=== PATIENT | male | born 1945 | race Caucasian/White ===

== ENCOUNTER 2018-01-31 08:16 | Day surgery (SDC) | payer OTHER ==
[~2018-01-31] VITALS: Ht 185.4 cm; Wt 122.5 kg
[2018-01-31] VITALS (10 sets, daily range): BP systolic 100–142; BP diastolic 67–81; PULSE 56–66; TEMP 36.5–36.6; O2SAT 92–98; Ht 185.4 cm; Wt 122.5 kg
[~2018-01-31 08:16] MED LIST: CALC500C3; STLS; SYNUNK
[2018-01-31] MEDS ORDERED: LEVO100T PO (08:43)
[2018-01-31] MEDS ORDERED: FURO-85 PO (08:43)
[2018-01-31] MEDS ORDERED: ATOR-22 PO (08:43)
[2018-01-31] MEDS ORDERED: ASPI81TA28 PO (08:43)
--- NOTE | 2018-01-31 10:55 | Discharge Instructions ---
Discharge Instructions Procedure Procedure Date: Jan 31, 2018. Reason for visit: Lumbar Stenosis. Discharge Discharge Date: Jan 31, 2018. Discharge Diagnosis: same Instructions Activity Recommendations: No limitations Return to School/Work: no limitations Recommended Home Diet: Resume Previous Diet Provider Instructions: ACTIVITY RECOMMENDATIONS: * Rest today. * Resume regular activity in one day. MEDICATIONS: * May take Tylenol or Ibuprofen as needed for pain. DIET: * Resume previous diet. SPECIAL CARE INSTRUCTIONS: Call your doctor if: * Temperature above 101 degrees F. * Pain not relieved by pain medicine ordered. * Increased drainage or redness from incision. * Notify your doctor with any questions or concerns. Call your doctor or go to the nearest Emergency Department if you experience: * Increased chest pain or shortness of breath. FOLLOW UP VISIT: Follow-up with Referring Physician as scheduled. Allergies Coded Allergies: No Known Allergies (Unverified , 01/31/18) Elisabeth Barajas Recommendations: Call your doctor if: * Temperature above 101 degrees * Pain not relieved by pain medicine ordered * There is increased drainage or redness from any incision * You have any unanswered questions or concerns. Your Doctors Instructions noted above were prepared by provider Amos Banerjee. Patient Signature Section: Patient Instructions Signature Page Skip Aranda Patient (or Guardian) Signature/Date: I have read and understand the instructions given to me by my caregivers. Caregiver/RN/Doctor Signature/Date: The above-named patient and/or guardian has received patient instructions on this date. + Original Patient Signature Page (only) stays with chart. Please make copy for patient.
[2018-01-31] MEDS ORDERED: ACETAMINOPHEN 500 MG TAB PO PRN (11:00)
--- NOTE | 2018-01-31 11:17 | DIAGNOSTIC IMAGING REPORT ---
FLUOROSCOPICALLY GUIDED LUMBAR MYELOGRAM CLINICAL HISTORY: Back Pain FLUOROSCOPY TIME: 0.4 minutes. 3 fluoroscopic spot images. PROCEDURE: The procedure, risks and benefits were discussed with the patient including the risk of spinal headache, bleeding and infection. The patient agreed to the procedure and informed written consent was obtained. The procedure was performed by Dr. Banerjee following a timeout. The left L5-S1 interlaminar space was targeted. Skin overlying the space was prepped and draped in the usual sterile fashion and local anesthesia was achieved with 1% lidocaine. Under intermittent fluoroscopic guidance, a 20-gauge x 4.75 in. Sprotte needle was inserted into the thecal sac. A total of 12cc of Isovue-M 200 was injected into the thecal sac under fluoroscopic. The patient tolerated the procedure well. There were no immediate complications. IMPRESSION: Successful fluoroscopic guided lumbar myelogram. No immediate complications. The patient was transported to the CT suite. Electronically signed by: Amos Banerjee M.D. 01/31/2018 11:16 AM Dictated Date/Time: 01/31/2018 11:14 AM
--- NOTE | 2018-01-31 11:57 | DIAGNOSTIC IMAGING REPORT ---
LUMBAR SPINE CT MYELOGRAM HISTORY: Back Pain MYELOGRAM TECHNIQUE: Multiaxial CT images of the lumbar spine were performed and reformatted in the sagittal and coronal plane following the intrathecal injection of contrast. COMPARISON STUDY: Lumbar spine radiograph 01/08/2018. FINDINGS: For the person of the report there are be 5 lumbar type vertebral bodies with the L5-S1 disc space located on axial image [id number] of [id number]. No fracture within the lumbar spine. There is 3 mm of retrolisthesis of L1 on L2 and L2 on L3. Severe disc space narrowing at L1-L2. Moderate to space narrowing at L2-L3. Mild disc space. L3-L4, L4-L5, and L5-S1. Mild levoscoliosis of the lumbar spine with the apex at the L2-L3 level. Endplate osteophytes seen throughout the lumbar spine. Mild disc space narrowing within the lower thoracic spine. The conus terminates at the L1-L2 disc space level. Moderate to severe facet osteoarthritis seen throughout the lumbar spine most pronounced at the L4-L5 and L5-S1 levels. Paraspinal soft tissues are unremarkable. T10-11: Focal left paracentral disc protrusion which abuts and slightly deforms the left anterior cord. T11-T12: No significant central canal or neural foraminal narrowing. L1-L2: Broad-based posterior disc bulge resulting in mild central canal and moderate bilateral neural foraminal narrowing. L2-L3: Broad-based posterior disc bulge with ligamentum and facet hypertrophy resulting in mild to moderate central canal and moderate to severe bilateral neural foraminal narrowing. L3-L4: Broad-based posterior disc bulge with ligamentum and facet hypertrophy resulting in severe central canal and moderate right neural foraminal narrowing. There is mild left neural foraminal narrowing. L4-L5: Broad-based posterior disc bulge with ligamentum and facet hypertrophy resulting in moderate to severe central canal and moderate to severe right-sided neural foraminal narrowing. There is also mild left-sided neural foraminal narrowing. L5-S1: No significant central canal narrowing. Moderate to severe left-sided neural foraminal narrowing. IMPRESSION: 1. Multilevel lumbar spondylosis as described above most pronounced at the L3-L4 and L4-L5 levels. 2. Multilevel bilateral neural foraminal narrowing due to the disc bulges and facet osteoarthritis. 3. Mild levoscoliosis. 4. Grade I retrolisthesis of L1 on L2 and L2 on L3. 5. No fractures identified within the lumbar spine. Electronically signed by: Amos Banerjee M.D. 01/31/2018 11:55 AM Dictated Date/Time: 01/31/2018 11:43 AM
== END 2018-01-31 15:06 | disposition home or self-care (01) ==
LOC: C.ACU 08:16
PROVIDERS: ATTEND Orthopaedic Surgery Orthopaedic Surgery of the Spine
DX: M48.061 Spinal stenosis, lumbar region without neurogenic claudication (principal)